=== PATIENT | female | born 1970 | race Caucasian/White ===

== ENCOUNTER → 2017-11-28 14:32 | Outpatient (POV) | payer OTHER, MEDICARE, SELFPAY ==
[2017-11-28 14:45] VITALS: BP 133/85; PULSE 91; RESP 20; O2SAT 99
--- NOTE | 2017-11-28 15:39 | HMH.PMCON ---
Assessment and Plan (1) Myofascial pain syndrome Current visit: Yes Status: Chronic Category: Medical Code(s): M79.1 - Myalgia (2) Lumbar back pain Current visit: Yes Status: Chronic Category: Medical Code(s): M54.5 - Low back pain (3) Degenerative joint disease (DJD) of lumbar spine Current visit: Yes Status: Chronic Category: Medical Code(s): M47.816 - Spondylosis without myelopathy or radiculopathy, lumbar region - Assessment and plan all Dx Assessment and Plan for all problems:: I offered the patient injective therapies however at this time she would like to take a more conservative approach. I agree with this. We will do a low dose steroid pack to help with the flare of back pain. We will also do Flexeril 10 mg 1 p.o. 3 times daily. I explained to her that she needs to stop taking her other muscle relaxants at this time. She understands. I also discussed the need for her to do a UDS today. Patient is getting her pain pump filled by home health. Patient's pump is morphine 10 mg/mL concentration with a daily dose of 3. Patient states that her typical pain is well controlled and she usually has no pain at all. He denies any side effects including sleepiness, urinary retention, confusion. Patient's [place] is reviewed [facility] #[id number] is appropriate. Patient has been prescribed a controlled substance after being counseled on the medication, medication safety, and possible side effects. NICKOLAS report has been obtained and reviewed prior to prescription and found to be appropriate. Opioid contract was reviewed and signed by the patient, and that they have agreed to all of the terms set forth by our compliance program. This note was dictated using voice recognition software and may contain omissions or air HPI - Data of Consult Consult date: 11/28/17 Requesting Physician: Sosa Wynn APRN Primary Care Provider: Referral Provider, - Consult Narrative Reason for consult: Pump management, sudden onset in neck and shoulder pain History of present illness: Ms. Marcial is a 47 year old female who has a intrathecal pain pump. Patient had this implanted a little over a year ago. She has recently gone through a time of septicemia. She has now been cleared. Patient also has Crohn's disease and has had most of her bowels were removed she has an ostomy in place. She has also had rectal cancer. She states she is now in remission. Patient has recently had an increase in her back pain along with her cervical pain. Patient rates her pain a 6 out of 10 today[address] Patient drives 2 hours to the office. I discussed the possibility of facet joint injections for her. She has had an MRI at [facility] I do not have these records at this time. I also discussed with her potential trigger point injections however she does not want any injective therapy at this time. CC: Sosa Wynn APRN [facility] History I have reviewed the patient's past medical history: Yes Medical History: Reports:: Arrhythmia, Congestive Heart Failure, Diabetes Mellitus Type 1, Hyperlipidemia, Hypertension Other Medical History: Reports: Fibromyalgia, Sinus Problems Other Surgeries: Yes: Colostomy, - *Social History Educational Level: Completed College Smoking Status: Former smoker Tobacco Type: cigarettes # Packs/Day (cigarettes): 1 #Yrs smoked (if former smoker): 20 Alcohol Intake: never Occupational Status: unemployed Household Members: spouse, family - Psychiatric History Expresses thoughts of harming self/others: None Suicide Plan Description: No Plan *Family Hx:: Heart Attack, Hypertension, Stroke Review of Systems - Review of Systems ROS General: no recent weight change, no fever, no sleep disturbances Respiratory: no cough, no shortness of air, no recurring pulmonary infections Cardiovascular/Peripheral Vascular: No chest pain, No palpitations, no edema, no shortness of breath. Gastrointestinal: O
--- NOTE | 2017-11-28 16:09 | P.CONS_ITS ---
Assessment and Plan (1) Myofascial pain syndrome Current visit: Yes Status: Chronic Category: Medical Code(s): M79.1 - Myalgia (2) Lumbar back pain Current visit: Yes Status: Chronic Category: Medical Code(s): M54.5 - Low back pain (3) Degenerative joint disease (DJD) of lumbar spine Current visit: Yes Status: Chronic Category: Medical Code(s): M47.816 - Spondylosis without myelopathy or radiculopathy, lumbar region - Assessment and plan all Dx Assessment and Plan for all problems:: I offered the patient injective therapies however at this time she would like to take a more conservative approach. I agree with this. We will do a low dose steroid pack to help with the flare of back pain. We will also do Flexeril 10 mg 1 p.o. 3 times daily. I explained to her that she needs to stop taking her other muscle relaxants at this time. She understands. I also discussed the need for her to do a UDS today. Patient is getting her pain pump filled by home health. Patient's pump is morphine 10 mg/mL concentration with a daily dose of 3. Patient states that her typical pain is well controlled and she usually has no pain at all. He denies any side effects including sleepiness , urinary retention, confusion. Patient's [place] is reviewed [facility] #[id number] is appropriate. Patient has been prescribed a controlled substance after being counseled on the medication, medication safety, and possible side effects. N[place]OLAS report has been obtained and reviewed prior to prescription and found to be appropriate. Opioid contract was reviewed and signed by the patient, and that they have agreed to all of the terms set forth by our compliance program. This note was dictated using voice recognition software and may contain omissions or air HPI - Data of Consult Consult date: 11/28/17 Requesting Physician: Sosa Wynn APRN Primary Care Provider: Referral Provider, - Consult Narrative Reason for consult: Pump management, sudden onset in neck and shoulder pain History of present illness: Ms. Marcial is a 47 year old female who has a intrathecal pain pump. Patient had this implanted a little over a year ago. She has recently gone through a time of septicemia. She has now been cleared. Patient also has Crohn's disease and has had most of her bowels were removed she has an ostomy in place. She has also had rectal cancer. She states she is now in remission. Patient has recently had an increase in her back pain along with her cervical pain. Patient rates her pain a 6 out of 10 today. Patient drives 2 hours to the office. I discussed the possibility of facet joint injections for her. She has had an MRI at [facility] I do not have these records at this time. I also discussed with her potential trigger point injections however she does not want any injective therapy at this time. CC: Sosa Wynn APRN [facility] History I have reviewed the patient's past medical history: Yes Medical History: Reports:: Arrhythmia, Congestive Heart Failure, Diabetes Mellitus Type 1, Hyperlipidemia, Hypertension Other Medical History: Reports: Fibromyalgia, Sinus Problems Other Surgeries: Yes: Colostomy, - *Social History Educational Level: Completed College Smoking Status: Former smoker Tobacco Type: cigarettes # Packs/Day (cigarettes): 1 #Yrs smoked (if former smoker): 20 Alcohol Intake: never Occupational Status: unemployed Household Members: spouse, family - Psychiatric History Expresses thoughts of harming self/others: None Suicide Plan Description: No Plan *Family Hx:: Heart Attack, Hyper
[2017-11-28 16:30] LABS: Amphetamine/Metha Screen,Urine Negative ng/mL (<1000); Barbiturates Screen,Urine Negative ng/mL (<200); Benzodiazepines Screen,Urine Negative ng/mL (200); Cannabinoid Screen,Urine Negative ng/mL (<50); Cocaine Screen,Urine Negative ng/g (<300); Methadone Screen,Urine Negative ng/mL (<300); Opiate Screen,Urine Positive ng/mL (<300); Phencyclidine Screen,Urine Negative ng/mL (<25)
--- NOTE | 2017-11-30 09:28 | PC.PHONENOTE ---
Called in Rx for Prednisone 20mg BID x 5 days and Flexeril 10mg TID with no refills to [facility] pharmacy in [place] per provider order
[2017-12-05 15:15] LABS: Codeine Negative (Cutoff=100); Hydrocodone Negative (Cutoff=100); Hydromorphone Negative (Cutoff=100); Morphine Positive (.)
[2017-12-06 06:27] LABS: Opiates Positive (.)
== END ==
PROVIDERS: Visit Provider Clinical Nurse Specialist Family Health
DX: M54.2 Cervicalgia (principal); M54.5 Low back pain
CPT/HCPCS: 80305; 80361; 80365; 99202; G0480

== ENCOUNTER → 2018-05-15 14:48 | Outpatient (POV) | payer MEDICARE, MEDICAID, OTHER, SELFPAY ==
[2018-05-15 15:17] VITALS: BP 129/89; PULSE 96; RESP 18; O2SAT 98; BMI 33.8
--- NOTE | 2018-05-15 15:21 | HMH.PAINSOAP ---
[facility] Pain Management SOAP Note Subjective:: Patient is a pleasant 48-year-old white female who presents today to [facility] care. Patient has been getting intrathecal pain pump refill done at home however she recently lost her insurance and will be receiving her refills here. Patient is being treated for pain with her intrathecal pain pump secondary to history of rectal cancer, Crohn's disease, back pain cervical pain. Patient rates her pain a 3 out of 10 today. Patient is doing quite well. Patient does have [facility] #[id number] reviewed and appropriate. Patient's currently on 3 mg of morphine a day. Patient denies any side effects to the medication. ROS General: no recent weight change, no fever, no sleep disturbances Respiratory: no cough, no shortness of air, no recurring pulmonary infections Cardiovascular/Peripheral Vascular: No chest pain, No palpitations, no edema, no shortness of breath. Gastrointestinal: no incontinence, normal bowel movements reported Genitourinary: no incontinence Musculoskeletal: Back pain Psychiatric: normal mood/ affect Neurological: [denies weakness in extremities], [denies balance issues] Objective:: Physical Exam General: Alert and oriented x3, no acute distress, pleasant and cooperative, [on room air] Lungs: Resps E/U, Symmetrical chest expansion Eyes: PERRL Musculoskeletal: Flexion and extension of lumbar spine somewhat guarded secondary to pain, deep tendon reflexes normal, strength in upper and lower extremities [5/5], slightly antalgic gait noted Neurological: speech clear, home care nurse equal, no gross sensory deficits Assessment:: Degenerative disc disease of lumbar spine with lumbar radiculopathy, myofascial pain syndrome Plan:: We will follow-up with the patient for intrathecal pain pump refill. Patient is doing well at this time. This note was dictated using voice recognition software and may contain errors or omissions
--- NOTE | 2018-05-15 15:24 | P.CONS_ITS ---
[facility] Pain Management SOAP Note Subjective:: Patient is a pleasant 48-year-old white female who presents today to [facility] care. Patient has been getting intrathecal pain pump refill done at home however she recently lost her insurance and will be receiving her refills here. Patient is being treated for pain with her intrathecal pain pump secondary to history of rectal cancer, Crohn's disease, back pain cervical pain. Patient rates her pain a 3 out of 10 today. Patient is doing quite well. Patient does have [facility] #[id number] reviewed and appropriate. Patient's currently on 3 mg of morphine a day. Patient denies any side effects to the medication. ROS General: no recent weight change, no fever, no sleep disturbances Respiratory: no cough, no shortness of air, no recurring pulmonary infections Cardiovascular/Peripheral Vascular: No chest pain, No palpitations, no edema, no shortness of breath. Gastrointestinal: no incontinence, normal bowel movements reported Genitourinary: no incontinence Musculoskeletal: Back pain Psychiatric: normal mood/ affect Neurological: [denies weakness in extremities], [denies balance issues] Objective:: Physical Exam General: Alert and oriented x3, no acute distress, pleasant and cooperative, [ on room air] Lungs: Resps E/U, Symmetrical chest expansion Eyes: PERRL Musculoskeletal: Flexion and extension of lumbar spine somewhat guarded secondary to pain, deep tendon reflexes normal, strength in upper and lower extremities [5/5], slightly antalgic gait noted Neurological: speech clear, cellular phone repairer equal, no gross sensory deficits Assessment:: Degenerative disc disease of lumbar spine with lumbar radiculopathy, myofascial pain syndrome Plan:: We will follow-up with the patient for intrathecal pain pump refill. Patient is doing well at this time. This note was dictated using voice recognition software and may contain errors or omissions
== END ==
PROVIDERS: Visit Provider Clinical Nurse Specialist Family Health
DX: M54.16 Radiculopathy, lumbar region (principal)
CPT/HCPCS: 99212

== ENCOUNTER → 2018-10-24 15:32 | Outpatient (CLI) | payer MEDICARE, MEDICAID, SELFPAY ==
[2018-10-24 16:20] LABS: Amphetamine/Metha Screen,Urine Negative ng/mL (<1000); Barbiturates Screen,Urine Negative ng/mL (<200); Benzodiazepines Screen,Urine Negative ng/mL (<200); Cannabinoid Screen,Urine Negative ng/mL (<50); Cocaine Screen,Urine Negative ng/mL (<300); Methadone Screen,Urine Negative ng/mL (<300); Opiate Screen,Urine Positive ng/mL (<300); Phencyclidine Screen,Urine Negative ng/mL (<25)
[2018-10-30 07:08] LABS: Codeine Negative (Cutoff=100); Hydrocodone Negative (Cutoff=100); Hydromorphone Negative (Cutoff=100); Morphine Positive (.)
[2018-10-30 08:22] LABS: Opiates Positive (.)
== END ==
PROVIDERS: Visit Provider Clinical Nurse Specialist Family Health
DX: Z79.899 Other long term (current) drug therapy (principal)
CPT/HCPCS: 80305; 80361; 80365; G0480

== ENCOUNTER 2019-02-06 13:05 | Day surgery (SDC) | payer MEDICARE, MEDICAID, SELFPAY ==
[2019-02-06 13:15] VITALS: BP 138/82; PULSE 93; RESP 18; O2SAT 98; BMI 34.4
[2019-02-06 13:31] VITALS: BP 134/89; PULSE 97; RESP 18; O2SAT 98
[2019-02-06 13:39] VITALS: BP 135/89; PULSE 94; RESP 18; O2SAT 98
--- NOTE | 2019-02-06 13:46 | HMH.PMPROC ---
- Procedure Date: 02/06/19 Time: 13:46 Anesthesiologist:: Sosa Wynn APRN Complications:: None Pre-procedure Diagnosis:: Degenerative disc disease lumbar spine with lumbar radiculopathy Post-procedure Diagnosis:: Same Indications for Procedure:: Patient is a pleasant 48-year-old white female who presents today for intrathecal pain pump refill and reprogram. She is currently rating her pain a 5 out of 10 she would like a increase she is currently on Infumorph dose of 4.5 mg a day daily with 5 boluses of 0.4 mg equaling 6.5 mg a day Physical Exam General: Alert and oriented x3, no acute distress, pleasant and cooperative, [on room air] Lungs: Resps E/U, Symmetrical chest expansion, Eyes: PERRL Musculoskeletal: Flexion and extension of lumbar spine somewhat guarded secondary to pain, deep tendon reflexes normal, strength in upper and lower extremities [5/5], [abnormal gait noted] Neurological: speech clear, county health officer equal, no gross sensory deficits Procedure Details:: Informed consent was obtained and the risk and benefits of the procedure were explained to the patient. The patient was taken to the procedure room where noninvasive monitoring was placed including noninvasive blood pressure cuff and pulse oximeter. Patient's pump was interrogated. The area over the pump was cleansed with chlorhexidine as a cleansing solution. In sterile fashion the pump was accessed with a 22-gauge needle. Approximately 4 mL's were removed of the pump solution and discarded appropriately. The pump was then refilled with 20 mL's of morphine 30 mg/mL. The needle was withdrawn and a bandage was placed over the puncture site. The infusion rate was reprogrammed to 0.27 mg q. one hour for total daily dose of 6.5 mg. The patient tolerated the procedure well. Plan and Disposition:: Follow-up with the patient to 3 weeks to assess her symptoms at that time if she is doing well we will see her at her next intrathecal pain pump refill and reprogram. Been instructed to call the office if she has any issues prior to her next appointment. Dr. Wright has reviewed this note and agrees with this plan of care. This note was dictated using voice recognition software and may contain errors or omissions
[2019-02-06 14:15] VITALS: BP 107/63; PULSE 90; RESP 18; O2SAT 98
== END 2019-02-06 14:15 | disposition home or self-care (01) ==
LOC: SC.PAINP 13:06
PROVIDERS: Visit Provider Clinical Nurse Specialist Family Health
DX: M51.16 Intervertebral disc disorders with radiculopathy, lumbar region (principal)
CPT/HCPCS: 62370

== ENCOUNTER → 2019-02-27 11:20 | Outpatient (POV) | payer MEDICARE, MEDICAID, SELFPAY ==
[2019-02-27 11:26] VITALS: BP 153/87; PULSE 100; RESP 18; O2SAT 98; BMI 34.0
--- NOTE | 2019-02-27 12:12 | HMH.PMPROC ---
- Procedure Date: 02/27/19 Time: 12:13 Anesthesiologist:: Sosa Wynn APRN Complications:: None Pre-procedure Diagnosis:: Degenerative disc disease lumbar spine with lumbar radiculopathy Post-procedure Diagnosis:: Same Indications for Procedure:: She is a pleasant 48-year-old white female who presents today for intrathecal pain pump reprogram. She is having increased pain rating her pain a 7 out of 10. Patient is on a morphine dose of 6.5 mg a day. Patient denies side effects. Patient's pain was significant on arrival we gave her a 1 mg bolus of morphine her pain is now 2 out of 10. We will reprogram her today. Physical Exam General: Alert and oriented x3, no acute distress, pleasant and cooperative, [on room air] Lungs: Resps E/U, Symmetrical chest expansion, Eyes: PERRL Musculoskeletal: Flexion and extension of lumbar spine somewhat guarded secondary to pain, deep tendon reflexes normal, strength in upper and lower extremities [5/5], [abnormal gait noted] Neurological: speech clear, [place] boatman equal, no gross sensory deficits Procedure Details:: Informed consent was obtained and the risk and benefits of the procedure were explained to the patient. The patient was taken to the procedure room where noninvasive monitoring was placed including noninvasive blood pressure cuff and pulse oximeter. Patient's pump was interrogated and reprogrammed. The infusion rate was increased from 0.27 mg q. one hour to 0.35 mg q. one hour of morphine for total daily dose of 8.5 mg/day. The patient tolerated the procedure well. Plan and Disposition:: We will follow-up with the patient at her next intrathecal pain pump refill and reprogram. She has been instructed to call the office if she has any issues prior to her next appointment. Dr. Wright has reviewed this note and agrees with this plan of care. This note was dictated using voice recognition software and may contain errors or omissions
--- NOTE | 2019-02-27 12:15 | P.PCN_ITS ---
- Procedure Date: 02/27/19 Time: 12:13 Anesthesiologist:: Sosa Wynn APRN Complications:: None Pre-procedure Diagnosis:: Degenerative disc disease lumbar spine with lumbar radiculopathy Post-procedure Diagnosis:: Same Indications for Procedure:: She is a pleasant 48-year-old white female who presents today for intrathecal pain pump reprogram. She is having increased pain rating her pain a 7 out of 10. Patient is on a morphine dose of 6.5 mg a day. Patient denies side effects. Patient's pain was significant on arrival we gave her a 1 mg bolus of morphine her pain is now 2 out of 10. We will reprogram her today. Physical Exam General: Alert and oriented x3, no acute distress, pleasant and cooperative, [on room air] Lungs: Resps E/U, Symmetrical chest expansion, Eyes: PERRL Musculoskeletal: Flexion and extension of lumbar spine somewhat guarded secondary to pain, deep tendon reflexes normal, strength in upper and lower extremities [5/5], [abnormal gait noted] Neurological: speech clear, merchandising consultant equal, no gross sensory deficits Procedure Details:: Informed consent was obtained and the risk and benefits of the procedure were explained to the patient. The patient was taken to the procedure room where noninvasive monitoring was placed including noninvasive blood pressure cuff and pulse oximeter. Patient's pump was interrogated and reprogrammed. The infusion rate was increased from 0.27 mg q. one hour to 0.35 mg q. one hour of morphine for total daily dose of 8.5 mg/day. The patient tolerated the procedure well. Plan and Disposition:: We will follow-up with the patient at her next intrathecal pain pump refill and reprogram. She has been instructed to call the office if she has any issues p rior to her next appointment. Dr. Wright has reviewed this note and agrees with this plan of care. This note was dictated using voice recognition software and may contain errors or omissions
--- NOTE | 2019-10-15 12:49 | PC.NURSE ---
PT CALLED TO NOTIFY OFFICE SHE HAD SURGERY LAST WEEK AND WAS PLACED ON OXYCODONE 5MG BY HER SURGEON.
== END ==
PROVIDERS: Visit Provider Clinical Nurse Specialist Family Health
DX: M51.16 Intervertebral disc disorders with radiculopathy, lumbar region (principal)
CPT/HCPCS: 62368; 99212

== ENCOUNTER → 2020-03-06 11:01 | Outpatient (POV) | payer MEDICARE, MEDICAID, SELFPAY ==
--- NOTE | 2020-03-06 13:05 | HMH.PAINSOAP ---
[facility] Pain Management SOAP Note Subjective:: Patient is a pleasant 49-year-old white female who is following up via telehealth medicine today. This encounter was performed as telemedicine. The visit was performed via a secure to a video and audio to minimize risk and transmission of COVID19. Patient understands limitations of telemedicine visits which include inability to check reflexes, possibly missing subtle findings on the physical exam. Alternative options were presented to the patient and the patient did elect to proceed with the visit. The patient and I specifically discussed risk factors for COVID19. These risks include, but are not limited to age greater than 60, heart or lung disease, diabetes, immunosuppression, and travel. We also discussed NSAIDs may worsen COVID19 infection or symptoms. Patient should not use NSAIDs to treat COVID19 signs or symptoms. Patient was also informed that any type of corticosteroid of any form (oral or injection) will decrease the patient's immune system response and may increase the likelihood of COVID19 infection and symptoms. Patient is following up today via telehealth medicine for her 6-month visit. She does have intrathecal pain pump that is treating degenerative disc disease of lumbar spine with lumbar radiculopathy symptoms. Patient says she is doing well overall with her intrathecal therapy. She is currently on morphine intrathecal therapy. She denies any side effects to the medication. Patient says that she is having some wrist, knee, and ankle pain. She says this is chronic in nature. She has tried Voltaren gel with no relief. She is requesting other topical remedies to help with her pain. Overall, the patient says she is doing well with her low back pain, however. Review of Systems General: No recent weight changes, no fever, no sleep disturbances Respiratory: No cough, no shortness of air, no recurring pulmonary infections Cardiovascular/peripheral vascular: No chest pain, no palpitations, no edema, no shortness of breath Gastrointestinal: No new onset incontinence, normal bowel movements reported Genitourinary: No new onset incontinence Musculoskeletal: Intermittent low back pain, bilateral wrist pain, bilateral ankle pain, bilateral knee pain Psychiatric: Normal mood/affect Neurological: [Denies weakness in extremities], [denies balance issues] Objective:: Constitutional: Healthy appearing, well-developed, alert and oriented, no acute distress noted Psychiatric: Judgment and insight intact. Mood normal, affect appropriate Head: Normocephalic, atraumatic, extraocular movement intact Respiratory: Nonlabored, non-dyspneic Cardiovascular: No cyanosis, no clubbing, no edema observed Skin: Head and neck, no lesions or rashes noted. Bilateral upper extremities no lesions or rashes noted Gait: Able to walk without assist of heel and toe walk Neurological: Sensation grossly intact per patient C3-T1 Musculoskeletal: Full range of motion, positive straight leg raise Assessment:: Degenerative disc disease lumbar spine with lumbar radiculopathy symptoms Plan:: Overall the patient is doing well with her intrathecal therapy. We will order the patient compounding cream for her pain in her wrists, ankles, and knees bilaterally. She has tried Voltaren gel with no relief. We will plan to see the patient back in the clinic in 6 months. She has been instructed to contact clinic if she has any concerns before next appointment. Dr. Wright has reviewed this note and agrees with this plan of care. This note was dictated using voice recognition software and make contain errors or omissions. [facility] History I have reviewed the patient's past medical history: Yes Medical History: Reports:: Arrhythmia, Cancer (recto), Congestive Heart Failure, Diabetes Mellitus Type 2, Hyperlipidemia, Hypertension, MRSA Denies:: Diabetes Mellitus Type 1, Seizures *Have you ever received a pneumoni
== END ==
PROVIDERS: Visit Provider Clinical Nurse Specialist Family Health
DX: M51.16 Intervertebral disc disorders with radiculopathy, lumbar region (principal)
CPT/HCPCS: 99212

== ENCOUNTER 2020-09-01 13:19 | Day surgery (SDC) | payer MEDICARE, MEDICAID, SELFPAY ==
[2020-09-01 13:46] VITALS: BP 120/78; PULSE 78; RESP 18; TEMP 36.6; O2SAT 98; BMI 36.0
[2020-09-01 13:52] VITALS: BP 117/77; PULSE 85; RESP 18; O2SAT 98
--- NOTE | 2020-09-01 13:52 | P.PCN_ITS ---
- Procedure Date: 09/01/20 Time: 13:52 Anesthesiologist:: Sosa Wynn APRN Complications:: None Pre-procedure Diagnosis:: Degenerative disc disease lumbar spine lumbar radiculopathy Post-procedure Diagnosis:: Same Indications for Procedure:: Patient is a pleasant 50-year-old white female presents today for intrathecal pain pump refill and reprogram. Patient has finished her chemotherapy and is now on Stelara. She is having quite a bit of joint pain worsening after she started the Stelara. We discussed potentially doing some anti-inflammatory medications. She is currently on intrathecal morphine. We will increase her today. She denies side effects to this. [facility] #[id number] reviewed and appropriate. She is on compounding cream. Physical Exam General: Alert and oriented x3, no acute distress, pleasant and cooperative, [on room air] Lungs: Resps E/U, Symmetrical chest expansion, Eyes: PERRL Musculoskeletal: Flexion and extension of lumbar spine somewhat guarded secondary to pain, deep tendon reflexes normal, strength in upper and lower extremities [5/5], [abnormal gait noted] Neurological: speech clear, chief counsel equal, no gross sensory deficits Procedure Details:: Informed consent was obtained and the risk and benefits of the procedure were explained to the patient. The patient was taken to the procedure room where noninvasive monitoring was placed including noninvasive blood pressure cuff and pulse oximeter. Patient's pump was interrogated. The area over the pump was cleansed with chlorhexidine as a cleansing solution. In sterile fashion the pump was accessed with a 22-gauge needle. [id number]'s were removed of the pump solution and discarded appropriately. The pump was then refilled with 20 mL's of 30mg/mL. The needle was withdrawn and a bandage was placed over the puncture site. The infusion rate was reprogrammed to increase to 9 mg/day. The patient tolerated the procedure well. Plan and Disposition:: We will: Call in Celebrex 200 mg 1 p.o. daily for the patient. We will see if this is beneficial for her joint pain. We will see her back at her next intrathecal pain pump refill and reprogram. She has been instructed to call the office if she has any issues prior to her next appointment. Dr. Wright has reviewed this note and agrees with this plan of care. This note was dictated using voice recognition software and may contain errors or omissions
[2020-09-01 13:55] VITALS: BP 118/79; PULSE 80; PULSE 82; RESP 18; O2SAT 98
[2020-09-01 14:20] VITALS: BP 117/76; PULSE 78; RESP 18; O2SAT 98
== END 2020-09-01 14:20 | disposition home or self-care (01) ==
LOC: SC.PAINP 13:22
PROVIDERS: Visit Provider Clinical Nurse Specialist Family Health
DX: M51.16 Intervertebral disc disorders with radiculopathy, lumbar region (principal); Z72.0 Tobacco use; K21.9 Gastro-esophageal reflux disease without esophagitis; F41.9 Anxiety disorder, unspecified; F32.9 Major depressive disorder, single episode, unspecified; Z86.19 Personal history of other infectious and parasitic diseases
CPT/HCPCS: 62370

== ENCOUNTER → 2021-09-10 09:20 | Outpatient (POV) | payer MEDICARE, MEDICAID, SELFPAY ==
--- NOTE | 2021-09-10 09:24 | P.CONS_ITS ---
[facility] PM Virtual Visit SOAP Consent for virtual visit:: With the recent concerns about the COVID-19, we are trying to minimize exposure to you by shifting to telehealth appointments whenever possible. It restricts me from seeing you in person, but the trade off is protecting you during this pandemic. Can you see and hear me okay, and do you consent to this option? If not, I would be happy to see if we can reschedule your appointment in the future, when feasible. Has patient consented to this virtual visit?: Yes Subjective:: Patient is a 51-year-old white female who is following up via telehealth today with phone call. She is currently diagnosed with Covid 1 day before . She is having difficulty talking and breathing during the conversation on the phone. She is doing a 6-month follow-up and is at home refill patient. Patient sounds very ill and having difficulty with conversation today. She does says she is doing well with her intrathecal pump. Patient has been advised we will not speak long via telephone due to difficulty speaking. She does rate her pain a 2 out of 10 to her low back area. She is not having any side effects to the medication. She is currently quarantining. Review of Systems General: No recent weight changes, Respiratory: Shortness of breath, coughing, difficulty speaking Cardiovascular/peripheral vascular: No chest pain, no palpitations, Gastrointestinal: No new onset incontinence, normal bowel movements reported Genitourinary: No new onset incontinence Musculoskeletal: Minimal back pain Psychiatric: [Normal mood/affect] Neurological: Reports weakness Objective:: Physical exam General: Alert and oriented x3, shortness of breath during conversation Assessment:: Degenerative disc disease lumbar spine with lumbar radiculopathy symptoms, Covid diagnosis current Plan:: We will plan to follow-up with patient in 6 months. She does undergo routine drug screens through [employer] home refill. She has been advised she can contact the clinic if she has any concerns for next appointment. Patient has been instructed to contact the clinic with any concerns before the next appointment. Dr. Wright has reviewed this note and agrees with this plan of care. This note was dictated using voice recognition software and make contain errors or omissions. Time In:: 09:15 Time Out:: 09:20 [facility] History I have reviewed the patient's past medical history: Yes Medical History: Reports:: Arrhythmia, Congestive Heart Failure, Diabetes Mellitus Type 2, Hyperlipidemia, Hypertension Denies:: Cancer, Diabetes Mellitus Type 1, MRSA, Seizures *Have you ever received a pneumonia vaccine?: No *Have you received a flu vaccine this season?: No Other Medical History: Reports: Fibromyalgia, Sinus Problems Other Surgeries: Yes: Cholecystectomy, Colostomy (ostomy x4), , Other Amputation: No Fractures: No - *Social History Smoking Status: Current every day smoker Tobacco Type: cigarettes # Packs/Day (cigarettes): 1 #Yrs smoked (if former smoker): 20 Alcohol Intake: never *Occupational Status:: retired Housing: house Household Members: other *Travel in the last 8 weeks: None Family Hx:: Heart Attack, Hypertension, Stroke
== END ==
PROVIDERS: Visit Provider Clinical Nurse Specialist Family Health
DX: M51.16 Intervertebral disc disorders with radiculopathy, lumbar region (principal); U07.1 COVID-19
CPT/HCPCS: 99212; G0463

== ENCOUNTER → 2023-01-05 14:47 | Outpatient (POV) | payer MEDICARE, SELFPAY ==
--- NOTE | 2023-01-05 15:04 | A.OFFVIS_ITS ---
[facility] Pain Management SOAP Note Subjective:: Patient is a pleasant 52-year-old female who presents today for 6-month medication refill and follow-up. We are currently treating the patient for degenerative disc disease of lumbar spine with lumbar radiculopathy symptoms. Today she rates her pain an 8 out of 10. Patient states that she is experiencing back pain that is more prominent on the right side that goes down to her knee as well as right finger numbness that goes up her forearm. Patient states this is only been going on for approximately 1 week and does feel like it is related to being out of her Lyrica medication. Patient is currently managed with pregabalin 150 mg 3 times a day. Patient denies any side effects from this medication. Patient is an at home [facility] client patient. She is currently managed with intrathecal morphine 30 mg/mL with 9.9 mg/day. Patient denies any side effects from this medication. She states this medication does help. She is also prescribed compounding cream for additional relief. Her Nickolas is [phone]. Its been reviewed and appropriate. Review of Systems: General: No recent weight changes, no fever, no sleep disturbances Respiratory: No cough, no shortness of air, no recurring pulmonary infections Cardiovascular/peripheral vascular: No chest pain, no palpitations, no edema, no shortness of breath Gastrointestinal: No new onset incontinence, normal bowel movements reported Genitourinary: No new onset incontinence Musculoskeletal: Low back pain Psychiatric: [Normal mood/affect] Neurological: [Denies weakness in extremities], [denies balance issues] Objective:: Physical Exam: General: Alert and oriented x3, no acute distress, pleasant and cooperative Lungs: Respirations even and unlabored, symmetrical chest expansion Eyes: PERRL Musculoskeletal: Flexion and extension of lumbar [spine] somewhat guarded secondary to pain, [antalgic gait noted] Neurological: Speech clear, no gross sensory deficit Assessment:: Degenerative disc disease of lumbar spine with lumbar radiculopathy symptoms Plan:: Patient is currently experiencing worsening pain in her low back with radiating symptoms into her right leg however she does believe this is related to being out of her Lyrica for the last week. Patient did have limited range of motion of her lumbar spine during today's visit. I will refill the patient's pregabalin 150 mg 3 times a day and provide a 6-month supply of this medication. I have discussed with the patient that she may benefit from injections for her worsening pain however at this time she would like to wait and see if the symptoms resolved after having her medication. Patient will return to clinic in 6 months for reevaluation of symptoms, medication refill and follow-up. Patient has been instructed to contact the clinic with any concerns before the next appointment. Dr. Wright has reviewed this note and agrees with this plan of care. This note was dictated using voice recognition software and make contain errors or omissions. [facility] Disclaimer: The information contained in this section may have been updated after the patient was seen, as this information can be updated by other users. Social History Smoking Status: Current every day smoker tobacco type: cigarettes packs per day: 1 second hand exposure: No alcohol intake: never current occupational status: retired Travel in the last 8 weeks: None household members: other housing: house current occupational exposures/hazards: No caffeine: Yes
[2023-01-05 15:23] VITALS: BP 113/86; PULSE 106; RESP 18; O2SAT 97; BMI 31.0
== END | disposition home or self-care (01) ==
PROVIDERS: Visit Provider Nurse Practitioner Family
DX: M51.16 Intervertebral disc disorders with radiculopathy, lumbar region (principal)
CPT/HCPCS: 99212; G0463

== ENCOUNTER → 2023-07-27 13:44 | Outpatient (POV) | payer MEDICARE, SELFPAY ==
--- NOTE | 2023-07-27 14:46 | EXP.PAIN.SOA ---
[facility] Pain Management SOAP Note Subjective:: Patient is a pleasant 53-year-old female who presents today for follow-up. We are currently treating the patient for degenerative disc disease of lumbar spine with lumbar radiculopathy symptoms. Today she rates her pain an 8 out of 10. Patient denies any new trauma or injury. She does state that today seems like a particularly bad day. Patient is currently managed with morphine 30 mg/mL with a daily dose of 9.9 mg/day. Patient denies any side effects from this medication. Patient is also managed with Lyrica 150 mg 3 times a day and compounded cream. Patient does state that she needs refills on all of this including the cream. Patient does state that she has also bad arthritis and that she does typically take the Tylenol arthritis however has only had minimal improvement. Patient denies any heart or kidney issues. Her Nickolas is [phone]. Its been reviewed and appropriate. Review of Systems: General: No recent weight changes, no fever, no sleep disturbances Respiratory: No cough, no shortness of air, no recurring pulmonary infections Cardiovascular/peripheral vascular: No chest pain, no palpitations, no edema, no shortness of breath Gastrointestinal: No new onset incontinence, normal bowel movements reported Genitourinary: No new onset incontinence Musculoskeletal: Low back pain Psychiatric: [Normal mood/affect] Neurological: [Denies weakness in extremities], [denies balance issues] Objective:: Physical Exam: General: Alert and oriented x3, no acute distress, pleasant and cooperative Lungs: Respirations even and unlabored, symmetrical chest expansion Eyes: PERRL Musculoskeletal: Flexion and extension of lumbar [spine] somewhat guarded secondary to pain, [antalgic gait noted] Neurological: Speech clear, no gross sensory deficit Assessment:: Degenerative disc disease of lumbar spine with lumbar radiculopathy symptoms Plan:: I will send in refills of the patient's Lyrica 150 mg 3 times a day, compounded cream and also send in a new prescription of meloxicam 7.5 mg with a 14-day supply of this medication. Patient does have a history of GI issues including Crohn's. I have discussed with the patient to discontinue all other NSAIDs while taking this medication and to take it with food to minimize GI upset. I have discussed with her to contact our office if this does provide improvement and she would like additional refills. Patient will return to clinic in 6 months for reevaluation of symptoms and plan of care. We will see the patient back in the clinic at the next intrathecal refill. Patient has been instructed to contact the clinic with any concerns before the next appointment. Dr. Wright has reviewed this note and agrees with this plan of care. This note was dictated using voice recognition software and make contain errors or omissions. -- It Is medically necessary for this patient to continue to have their intrathecal pump refilled at regular intervals. This patient had an intrathecal pain pump implanted after meeting criteria of chronic intractable pain for greater than 3 months and failing conservative treatments. Patient has committed and been compliant to the treatment plan and all planned follow up care. Since implantation of the intrathecal pain pump, the patient has had decreased pain and been more functional. Oral medications have been reduced including intake of oral opioids. Patient continues to do well with intrathecal therapy with decrease in pain symptoms and increase in functional status. Stopping intrathecal medications can lead to life threatening withdrawal, seizures, cardiac arrest, severe pain, and possible . Pumps that are not refilled at regular intervals can be damages and cause and need for replacement. We continually titrate dose and concentration to optimize pain relief and function. We are limited in concentration for certain drugs to safely deliver medications through the pump and st
[2023-07-27 15:36] VITALS: BP 117/79; PULSE 99; RESP 18; O2SAT 95; BMI 35.0
== END | disposition home or self-care (01) ==
PROVIDERS: Visit Provider Nurse Practitioner Family
DX: M51.16 Intervertebral disc disorders with radiculopathy, lumbar region (principal); Z97.8 Presence of other specified devices
CPT/HCPCS: 99212; G0463

== ENCOUNTER 2024-02-16 13:17 | Outpatient (POV) | payer MEDICARE, SELFPAY ==
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
[2024-02-16 13:35] VITALS: BP 141/90; PULSE 78; RESP 18; O2SAT 95; BMI 28.1
--- NOTE | 2024-02-16 13:47 | A.OFFVIS_ITS ---
[facility] Pain Management SOAP Note Subjective:: Patient is a pleasant 53-year-old female who presents today for medication refill and follow-up. Today she rates her pain a 4 out of 10. Patient denies any new trauma or injury. At our last visit we did trial her on meloxicam 7.5 mg with a 2-week supply however she states that it ended up causing some GI issues and she did not have improvement worthwhile to get refills. Patient is currently managed with Lyrica 150 mg 3 times a day and compounded cream. She denies any side effects from these medications. She does state that her primary care did put her back on Flexeril and that is helping. Patient does also have a intrathecal pain pump with morphine 30 mg/mL and a daily dose of 9.9 mg/day. She denies any side effects from this medication. Her Nickolas has been reviewed and is appropriate. Review of Systems: General: No recent weight changes, no fever, no sleep disturbances Respiratory: No cough, no shortness of air, no recurring pulmonary infections Cardiovascular/peripheral vascular: No chest pain, no palpitations, no edema, no shortness of breath Gastrointestinal: No new onset incontinence, normal bowel movements reported Genitourinary: No new onset incontinence Musculoskeletal: Abdominal pain low back pain, bilateral shoulder pain Psychiatric: [Normal mood/affect] Neurological: [Denies weakness in extremities], [denies balance issues] Objective:: Physical Exam: General: Alert and oriented x3, no acute distress, pleasant and cooperative Lungs: Respirations even and unlabored, symmetrical chest expansion Eyes: PERRL Musculoskeletal: Flexion and extension of lumbar [spine] somewhat guarded secondary to pain, [antalgic gait noted] Neurological: Speech clear, no gross sensory deficit Assessment:: Degenerative disc disease of lumbar spine with lumbar radiculopathy symptoms, abdominal pain, bilateral shoulder pain Plan:: I will refill the patient's pregabalin and provide a 6-month supply of this medication. Patient does state that her last prescription supposedly with still 2 refills on hand. I have counseled patient if this happens again she can just follow-up test and let us know and we will send in additional refills. Patient was counseled that if her shoulder pain continues that we can do intra-articular shoulder injections in future. We will follow-up with this at later dates. Patient will return to clinic in 6 months for reevaluation of symptoms and plan of care. Patient has been instructed to contact the clinic with any concerns before the next appointment. Dr. Wright has reviewed this note and agrees with this plan of care. This note was dictated using voice recognition software and make contain errors or omissions. -- It Is medically necessary for this patient to continue to have their intrathecal pump refilled at regular intervals. This patient had an intrathecal pain pump implanted after meeting criteria of chronic intractable pain for greater than 3 months and failing conservative treatments. Patient has committed and been compliant to the treatment plan and all planned follow up care. Since implantation of the intrathecal pain pump, the patient has had decreased pain and been more functional. Oral medications have been reduced including intake of oral opioids. Patient continues to do well with intrathecal therapy with decrease in pain symptoms and increase in functional status. Stopping intrathecal medications can lead to life threatening withdrawal, seizures, cardiac arrest, severe pain, and possible . Pumps that are not refilled at regular intervals can be damages and cause and need for replacement. We continually titrate dose and concentration to optimize pain relief and function. We are limited in concentration for certain drugs to safely deliver medications through the pump and stay within the recommendations from the Polyanalgesic Consensus Committee Guidelines. Depending on dose and concentration these pumps may need to be refilled sooner than 3 months as we titrate. [facility] Disclaimer: The information contained in this section may have been updated after the patient was seen, as this information can be updated by other users. Social History Smoking Status: Current every day smoker tobacco type: cigarettes packs per day: 1 second hand exposure: No alcohol intake: never current occupational status: other Travel in the last 8 weeks: None household members: other housing: house current occupational exposures/hazards: No caffeine: Yes
== END 2024-02-16 23:59 | disposition home or self-care (01) ==
PROVIDERS: Visit Provider Nurse Practitioner Family
DX: M51.16 Intervertebral disc disorders with radiculopathy, lumbar region (principal); R10.9 Unspecified abdominal pain; M25.511 Pain in right shoulder; M25.512 Pain in left shoulder; Z97.8 Presence of other specified devices
CPT/HCPCS: 99212; G0463

== ENCOUNTER 2024-06-01 11:33 | Day surgery (SDC) | payer MEDICARE, SELFPAY ==
[2024-06-01 11:48] VITALS: BMI 34.3
[2024-06-01 11:57] VITALS: BP 141/78; PULSE 93; RESP 18; TEMP 36.6; O2SAT 93
--- NOTE | 2024-06-01 12:02 | EXP.ANES.CKL ---
[facility] Disclaimer: The information contained in this section may have been updated after the patient was seen, as this information can be updated by other users. Medical History CA of rectum Pain of intrathecal infusion pump pocket after insertion Depression Anxiety Malnutrition Hernia Colostomy in place Crohn's disease History of gastroesophageal reflux (GERD) Surgical History Hx of cholecystectomy Social History Smoking Status: Current every day smoker tobacco type: cigarettes packs per day: 1 second hand exposure: No alcohol intake: never substance use type: denies use current occupational status: unemployed Travel in the last 8 weeks: None household members: other housing: house current occupational exposures/hazards: No caffeine: Yes [facility] Anesthesia Checklist Patient Identification Patient Identification: Arm Band and Verbal (Name & ) Structural Data Admitted From: Home Planned Operative Procedure/s: Pain pump replacement Consent for Planned Operative Procedure(s) Verified: Yes Verified Documents: Surgical Consent and History and Physical NPO Status Verified Time NPO: 00:00 Additional verifications Anesthesia Reactions: No Hx Blood Transfusions: Yes Blood Transfusion Reaction: No Airway Assessment Mallampati Score:: Class II C-Spine Mobility Assessed: Yes TMJ Mobility Assessed: Yes Dentition: Good Dentition Neurological Assessment Level of Consciousness: Awake Hx Seizures: No Numbness or tingling in extremities: No Anesthesia Plan Anesthesia Risk discussed: Yes Anesthesia Plan: Verified ASA Class: II Anesthesia Type: MAC
[2024-06-01] MEDS: VANCOMYCIN/WATER FOR INJ (PEG) 1.5 GM/300 ML PIGGYBACK IV (12:07)
[2024-06-01] MEDS: LACTATED RINGERS 1000ML 1,000 ML 25 ML IV (12:08)
[2024-06-01] MEDS: GENTAMICIN 80 MG/2 ML VIAL 160 MG (12:57)
[2024-06-01] MEDS: LIDOCAINE 1% W/EPI 1:100,000 20ML VIAL 40 ML (12:57)
[2024-06-01] MEDS: SODIUM CHLORIDE 0.9% 20ML VIAL 40 ML IV (12:57)
[2024-06-01 13:36] VITALS: BP 111/68; PULSE 87; RESP 16; TEMP 36.3; O2SAT 98
[2024-06-01 13:45] VITALS: BP 116/71; PULSE 90; RESP 16; O2SAT 99
[2024-06-01 13:55] VITALS: BP 118/75; PULSE 84; RESP 16; O2SAT 99
[2024-06-01 14:05] VITALS: BP 107/76; PULSE 86; RESP 16; O2SAT 98
--- NOTE | 2024-06-01 15:55 | P.OP_ITS ---
Date of procedure: 06/01/24 Pre-op Diagnosis:: End-of-life intrathecal pain pump system for degenerative disease of lumbar spine with lumbar radiculopathy symptoms and postlaminectomy syndrome lumbar spine Post-op Diagnosis:: Same Procedure performed:: Replacement pain pump system with new tunneled intrathecal catheter and replacement pain pump generator Surgeon:: Terell Wright MD MICROBIOLOGY SUPERVISOR:: Jonathon Reynolds Anesthesia: MAC Estimated blood loss (mL): 5 Clinical Note:: This patient is a pleasant 54-year-old white female who has a end-of-life Flowonix pain pump system for degenerative disc disease of lumbar spine with lumbar radiculopathy symptoms and postlaminectomy syndrome lumbar spine. She has been doing well with her pain pump system. We will replace her pain pump generator and catheter today. This replacement will be with the Medtronic system. Operative findings:: Implantation of Medtronic SynchroMed 3. Operative note:: Informed consent was obtained risk and benefits of the procedure were explained to the patient. The patient was taken the operating room placed prone on the procedure table. She was prepped and draped in sterile fashion. The skin and subtendinous tissues overlying the pain pump generator were anesthetized using lidocaine. I made incision dissected out the pain pump generator. The catheter did come out when we did take the pain pump generator out. Thus catheter and generator were removed. C arm fluoroscopy was used to view the lumbar spine. The skin subcutaneous tissues adjacent to the L4-5 and L5-S1 interspace were anesthetized using lidocaine. I made incision and dissected down to the lumbar paraspinous fascia. A 17-gauge spinal needle was inserted and advanced very easily into the L4-5 interspace until clear CSF was obtained. After this intrathecal catheter was inserted and advanced very easily to the T8 vertebral body. Catheter was in good position of his midline and posterior. The stylet of the catheter and the needle were withdrawn. The catheter secured to the fascia with an anchor device and 2-0 Prolene. I tunneled the catheter from the back to the pump pocket. I filled the pump with 20 mL of intrathecal morphine 15 mg/mL. I attached catheter to the pump. We are able to fully withdraw clear CSF through the sideport. The pump was then placed in the pocket with an antibiotic pouch. Both incisions were then closed with 2-0 Vicryl followed by 4-0 nylon and caroline. The patient was placed in an abdominal binder and taken recovery in stable condition. The patient tolerated the procedure well with no complications. The pump was interrogated and started that 7 mg/day with PTM boluses 0.7 mg up to 4 times a day. Patient was discharged home neurologic intact with good relief of pain symptoms. Plan and disposition: Will follow-up with this patient in 1 week for wound check. Will follow-up in 2 to 3 weeks for suture and staple removal. Patient's refill will need to be on or before 06/28/2024. At her refill concentration may need to be increased to morphine 20 mg/mL. Condition: stable Disposition: PACU Complications:: None
== END 2024-06-01 14:16 | disposition home or self-care (01) ==
PROVIDERS: Visit Provider Anesthesiology
PROC: (CPT 62350; principal; 2024-06-01 13:30)
DX: M51.16 Intervertebral disc disorders with radiculopathy, lumbar region (principal); M96.1 Postlaminectomy syndrome, not elsewhere classified; Z79.899 Other long term (current) drug therapy; F17.210 Nicotine dependence, cigarettes, uncomplicated
CPT/HCPCS: 62350; 62362; 96374; C1755; C1772; J1580; J2250; J2704; J7120

== ENCOUNTER 2024-06-07 10:02 | Outpatient (POV) | payer MEDICARE, SELFPAY ==
--- NOTE | 2024-06-07 10:48 | P.PCN_ITS ---
Procedure Date: 06/07/24 Time: 10:48 Anesthesiologist:: Xochitl Amaya APRN Complications:: None Pre-procedure Diagnosis:: Degenerative disc disease in lumbar spine with lumbar radiculopathy symptoms Post-procedure Diagnosis:: Same Indications for Procedure:: Patient is a pleasant 54-year-old female who presents today for 1 week postop of intrathecal pain pump replacement on 06/01/2024. Today she rates her pain a 9 out of 10. Patient states that she really does not feel that it is more the back pain as it is the incisional pain. Patient denies any problems following the procedure. She does state that she did notice drainage in and around the incision sites. She is currently managed with morphine 15 mg/mL with a daily dose of 7.006 mg/day. She denies any side effects from this medication. Her Nickolas has been reviewed and is appropriate. Physical Exam: General: Alert and oriented x3, no acute distress, pleasant and cooperative Lungs: Respirations even and unlabored, symmetrical chest expansion Eyes: PERRL Musculoskeletal: Flexion and extension of lumbar [spine] somewhat guarded secondary to pain, [antalgic gait noted] Neurological: Speech clear, no gross sensory deficit Procedure Details:: Informed consent was obtained and the risk and benefits of the procedure were explained to the patient. Patient was taken to the procedure room where noninvasive monitoring was placed including noninvasive blood pressure cuff and pulse oximeter. Patient's pump was interrogated and was reprogrammed to morphine 7.707 mg/day. The patient tolerated the procedure well with no complications. Plan and Disposition:: Patient tolerated her intrathecal increase with no complications and was discharged neurologically intact. Patient's incisions are clean, dry, well- approximated with minimal to no erythema noted and sutures and caroline intact. Patient had no drainage during today's visit however she was counseled to let our office know if it does continue to be bothersome. Patient was also counseled to watch for any additional signs of possible infection such as fever or increased redness, swelling, etc. Patient was reviewed to continue her full 6-week postop restrictions of minimal bending, twisting or lifting, no submerging in water until her incisions are fully healed and to continue to use her abdominal binder. Patient acknowledges understanding. Patient will return to clinic in 2 weeks for suture and staple removal. Patient has been instructed to contact the clinic with any concerns before the next appointment. Dr. Wright has reviewed this note and agrees with this plan of care. This note was dictated using voice recognition software and make contain errors or omissions. All injections are used with Lidocaine or Bupivacaine and Depo Medrol.
[2024-06-07 11:47] VITALS: BP 160/94; PULSE 100; RESP 18; O2SAT 93; BMI 31.0
== END 2024-06-07 23:59 | disposition home or self-care (01) ==
PROVIDERS: Visit Provider Nurse Practitioner Family
DX: M51.36 Other intervertebral disc degeneration, lumbar region (principal)
CPT/HCPCS: 62368; 99213; G0463

== ENCOUNTER 2024-06-21 14:37 | Outpatient (POV) | payer MEDICARE, SELFPAY ==
--- NOTE | 2024-06-21 15:24 | A.OFFVIS_ITS ---
[facility] Disclaimer: The information contained in this section may have been updated after the patient was seen, as this information can be updated by other users. Medical History CA of rectum Pain of intrathecal infusion pump pocket after insertion Depression Anxiety Malnutrition Hernia Colostomy in place Crohn's disease History of gastroesophageal reflux (GERD) Surgical History Hx of cholecystectomy Social History (Updated 06/01/24 @ 12:05 by Harris Medellin CRNA) Smoking Status: Current every day smoker tobacco type: cigarettes packs per day: 1 second hand exposure: No alcohol intake: never substance use type: denies use current occupational status: unemployed Travel in the last 8 weeks: None household members: other housing: house current occupational exposures/hazards: No caffeine: Yes PM Subjective & Objective Subjective Subjective:: Patient is a pleasant 54-year-old female who presents today for follow-up. Today she rates her pain a 7 out of 10. Patient denies any new trauma or injury. She states she is still experiencing pain in and around her low back, left hip and right buttocks. Patient does describe this as an aching, throbbing sensation that does interfere with her ability perform activities of daily living such as cooking and cleaning. Patient is status post intrathecal pain pump replacement on 06/01/2024. She is currently managed with morphine 20 mg/mL with a daily dose of 7.632 mg/day. She denies any side effects from this medication. She does state that her home refill nurse and did just increase her yesterday and refill her pump. Patient denies any problems following her surgery. Patient does state that she is scheduled to have surgery on July 27 to have teeth removed due to her chemo. Patient is managed with clonazepam, Flexeril and pregabalin. Her Nickolas has been reviewed and is appropriate. Review of Systems: General: No recent weight changes, no fever, no sleep disturbances Respiratory: No cough, no shortness of air, no recurring pulmonary infections Cardiovascular/peripheral vascular: No chest pain, no palpitations, no edema, no shortness of breath Gastrointestinal: No new onset incontinence, normal bowel movements reported Genitourinary: No new onset incontinence Musculoskeletal: Low back pain, left hip pain, right buttocks pain Psychiatric: [Normal mood/affect] Neurological: [Denies weakness in extremities], [denies balance issues] Pain at rest (0-10 scale): 7 Objective Objective:: Physical Exam: General: Alert and oriented x3, no acute distress, pleasant and cooperative Lungs: Respirations even and unlabored, symmetrical chest expansion Eyes: PERRL Musculoskeletal: Flexion and extension of lumbar [spine] somewhat guarded secondary to pain, [antalgic gait noted] point tenderness along right piriformis muscle and left lumbar paraspinous muscles Neurological: Speech clear, no gross sensory deficit Skin: Incision sites are clean, dry, well-approximated with sutures and caroline in place. Has patient had previous pain injection?: No Conservative treatment options previously tried: Home exercise plan Length of treatment: Longer than 6 weeks Meds Home Medications and Allergies Home Medications ?Medication ?Instructions ?Recorded ?Confirmed ?Type cholecalciferol (vitamin D3) 125 5,000 unit PO DAILY Supplement 11/28/17 06/07/24 History mcg (5,000 unit) capsule ezetimibe 10 mg tablet (Zetia) 10 mg PO DAILY Supplement 11/28/17 06/07/24 History fexofenadine-pseudoephedrine ER 1 ea PO DAILY Allergy symptoms 11/28/17 06/07/24 History 180 mg-240 mg tablet,ext.release 24 hr (Mackenzie-D 24 Hour) montelukast 10 mg tablet 10 mg PO PM Supplement 11/28/17 06/07/24 History omeprazole 40 mg capsule,delayed 40 mg PO BID GERD 11/28/17 06/07/24 History release ondansetron 4 mg disintegrating 8 mg PO TID Nausea & vomiting 11/28/17 06/07/24 History tablet promethazine 25 mg tablet 25 mg PO HS Nausea & vomiting 11/28/17 06/07/24 History cyclobenzaprine 10 mg tablet 10 mg PO BIDP PRN spasms 09/01/20 06/07/24 History clonazepam 1 mg tablet 1 mg PO BID PRN Anxiety 05/31/24 06/07/24 History duloxetine 30 mg capsule,delayed 30 mg PO DAILY 05/31/24 06/07/24 History release (Cymbalta) pregabalin 150 mg capsule (Lyrica) 150 mg PO TID Pain 06/01/24 06/07/24 History sulfamethoxazole 800 1 tab PO BID #14 tabs 06/01/24 06/07/24 Rx mg-trimethoprim 160 mg tablet (Bactrim DS) New Prescriptions to Start Prescriptions: Allergies Allergy/AdvReac Type Severity Reaction Status Date / Time ciprofloxacin [From Cipro] Allergy Verified 06/01/24 11:58 latex Allergy Verified 06/01/24 11:58 levofloxacin [From Levaquin] Allergy Verified 06/01/24 11:58 Assessment and Plan *Assessment and plan (1) Myofascial pain syndrome: Status: Chronic Category: Medical Code(s): M79.1 - Myalgia (2) Lumbar back pain: Status: Chronic Category: Medical Code(s): M54.5 - Low back pain (3) Degenerative joint disease (DJD) of lumbar spine: Status: Chronic Category: Medical Code(s): M47.816 - Spondylosis without myelopathy or radiculopathy, lumbar region (4) Piriformis syndrome of right side: Status: Acute Category: Medical Code(s): G57.01 - Lesion of sciatic nerve, right lower limb Plan Patient is experiencing worsening pain in her low back and left hip as well as her right buttocks. Patient did have limited range of motion of her lumbar spine with point tenderness along her right piriformis muscle as well as left lumbar paraspinous muscles. I did discuss with patient that she may benefit from trigger point injections of both of these areas. Risk and benefits were discussed with the patient and she would like to first try some physical therapy or massage therapy. I did after school counselor the patient that I have no problem ordering this and that she can call and schedule these injections over the phone if the pain does not seem to get better between now and her next visit. We will send the physical therapy/massage therapy order with the patient to treat her low back, hip pain and buttocks pain. Does not have any specific offices that she is aware of in her location. We will see if we can find a physical therapist near her home address. Patient is agreeable to this plan of care. Patient will be given today her next intrathecal refill date as she was now going to be refilled here in clinic. Patient was able to have the rest of her sutures and caroline removed today with glue and Steri-Strips applied. Patient was counseled to continue her postop restrictions the full 6 weeks. Patient will return to clinic for reevaluation of symptoms and plan of care in approximately 4 to 6 weeks. We will see the patient back in the clinic at the next intrathecal refill. Patient has been instructed to contact the clinic with any concerns before the next appointment. Dr. Wright has reviewed this note and agrees with this plan of care. This note was dictated using voice recognition software and make contain errors or omissions. -- It Is medically necessary for this patient to continue to have their intrathecal pump refilled at regular intervals. This patient had an intrathecal pain pump implanted after meeting criteria of chronic intractable pain for greater than 3 months and failing conservative treatments. Patient has committed and been compliant to the treatment plan and all planned follow up care. Since implantation of the intrathecal pain pump, the patient has had decreased pain and been more functional. Oral medications have been reduced including intake of oral opioids. Patient continues to do well with intrathecal therapy with decrease in pain symptoms and increase in functional status. Stopping intrathecal medications can lead to life threatening withdrawal, seizures, cardiac arrest, severe pain, and possible . Pumps that are not refilled at regular intervals can be damages and cause and need for replacement. We continu ally titrate dose and concentration to optimize pain relief and function. We are limited in concentration for certain drugs to safely deliver medications through the pump and stay within the recommendations from the Polyanalgesic Consensus Committee Guidelines. Depending on dose and concentration these pumps may need to be refilled sooner than 3 months as we titrate.
[2024-06-21 15:37] VITALS: BP 118/76; PULSE 96; RESP 18; O2SAT 100; BMI 31.3
== END 2024-06-21 23:59 | disposition home or self-care (01) ==
LOC: SC.PAIN 14:39
PROVIDERS: Visit Provider Nurse Practitioner Family
DX: M47.816 Spondylosis without myelopathy or radiculopathy, lumbar region; G57.01 Lesion of sciatic nerve, right lower limb; Z97.8 Presence of other specified devices; F17.210 Nicotine dependence, cigarettes, uncomplicated; Z73.89 Other problems related to life management difficulty
CPT/HCPCS: 62368; 99213; G0463

== ENCOUNTER 2024-07-12 08:17 | Day surgery (SDC) | payer MEDICARE, SELFPAY ==
[2024-07-12 08:40] VITALS: BP 134/78; PULSE 95; RESP 18; O2SAT 93; BMI 31.3
[2024-07-12 08:57] VITALS: BP 104/69; PULSE 93; RESP 18; O2SAT 94
[2024-07-12 09:05] VITALS: BP 104/69; PULSE 93; RESP 18; O2SAT 94
[2024-07-12 09:08] VITALS: BP 102/71; PULSE 93; RESP 18; O2SAT 96
--- NOTE | 2024-07-12 09:12 | P.PCN_ITS ---
Procedure Date: 07/12/24 Time: 09:12 Anesthesiologist:: Xochitl Amaya APRN Complications:: None Pre-procedure Diagnosis:: Degenerative disc disease of lumbar spine with lumbar radiculopathy symptoms Post-procedure Diagnosis:: Same Indications for Procedure:: Patient is a pleasant 54-year-old female who presents today for intrathecal refill and reprogram. Today she rates her pain a 9 out of 10. She denies any new trauma or injury. Patient does state the last little bit she has been de aling with parotid glands being blocked. Patient states she is now on her second antibiotic and has a lot of pressure and pain related to this. Patient is currently managed with morphine 20 mg/mL with a daily dose of 7.632 mg/day. She denies any side effects from this medication. She is also managed with Flexeril 10 mg twice daily as needed and pregabalin 150 mg 3 times daily from our office. She denies any side effects from these medications. Her Nickolas has been reviewed and is appropriate. Physical Exam: General: Alert and oriented x3, no acute distress, pleasant and cooperative Lungs: Respirations even and unlabored, symmetrical chest expansion Eyes: PERRL Musculoskeletal: Flexion and extension of lumbar [spine] somewhat guarded secondary to pain, [antalgic gait noted] Neurological: Speech clear, no gross sensory deficit Procedure Details:: Informed consent was obtained and the risk and benefits of the procedure were explained to the patient. The patient was taken to the procedure room where noninvasive monitoring was placed including noninvasive blood pressure cuff and pulse oximeter. Patient's pump was interrogated. The area over the pump was cleansed with chlorhexidine as a cleansing solution. In sterile fashion the pump was accessed with a 22-gauge needle. Approximately 10.8 mls of the pump solution was removed and discarded appropriately. The pump was then refilled with 20 mL's of morphine 20 mg/mL. The needle was withdrawn and a bandage was placed over the puncture site. The infusion rate was reprogrammed and continued at morphine 7.632 mg/day. The patient tolerated well with no complication. Plan and Disposition:: Patient tolerated intrathecal refill and reprogram with no complications and was discharged neurologically intact. I will refill the patient's pregabalin, Flexeril and put refills on her compounded cream. Patient will return to clinic on or before her next pump refill date. We will see the patient back in the clinic at the next intrathecal refill. Patient has been instructed to contact the clinic with any concerns before the next appointment. Dr. Wright has reviewed this note and agrees with this plan of care. This note was dictated using voice recognition software and make contain errors or omissions. -- It Is medically necessary for this patient to continue to have their intrathecal pump refilled at regular intervals. This patient had an intrathecal pain pump implanted after meeting criteria of chronic intractable pain for greater than 3 months and failing conservative treatments. Patient has committed and been compliant to the treatment plan and all planned follow up care. Since implantation of the intrathecal pain pump, the patient has had decreased pain and been more functional. Oral medications have been reduced including intake of oral opioids. Patient continues to do well with intrathecal therapy with decrease in pain symptoms and increase in functional status. Stopping intrathecal medications can lead to life threatening withdrawal, seizures, cardiac arrest, severe pain, and possible . Pumps that are not refilled at regular intervals can be damages and cause and need for replacement. We continually titrate dose and concentration to optimize pain relief and function. We are limited in concentration for certain drugs to safely deliver medications through the pump and stay within the recommendations from the Polyanalgesic Consensus Committee Guidelines. Depending on dose and concentration these pumps may need to be refilled sooner than 3 months as we titrate.
== END 2024-07-12 09:10 | disposition home or self-care (01) ==
PROVIDERS: Visit Provider Nurse Practitioner Family
DX: M51.16 Intervertebral disc disorders with radiculopathy, lumbar region (principal)
CPT/HCPCS: 62370

== ENCOUNTER 2024-08-15 13:17 | Day surgery (SDC) | payer MEDICARE, SELFPAY ==
[2024-08-15 13:45] VITALS: BP 114/77; PULSE 91; RESP 18; O2SAT 96; BMI 31.0
[2024-08-15 14:22] VITALS: BP 128/78; PULSE 84; RESP 18; O2SAT 96
--- NOTE | 2024-08-15 14:32 | P.PCN_ITS ---
Procedure Date: 08/15/24 Time: 14:32 Anesthesiologist:: Xochitl Amaya APRN Complications:: None Pre-procedure Diagnosis:: Degenerative disc disease of lumbar spine with lumbar radiculopathy symptoms, left shoulder pain Post-procedure Diagnosis:: Same Indications for Procedure:: Patient is a pleasant 54-year-old female who presents today for intrathecal refill and reprogram. Today she rates her pain a 9 out of 10. Patient states that she was helping her aunt move and was carrying a lot of her baggage to the airport and was experiencing severe pain in her left shoulder. Patient states this is continued since and she has very limited range of motion due to this. Patient is unsure if she is done anything significant. Patient does have her intrathecal pain pump in place with morphine 20 mg/mL. She denies any side effects from this medication and denies any need for any additional adjustment to the dosage. She is currently managed at 7.632 mg/day. Patient is also prescribed Flexeril 10 mg twice a day and pregabalin 150 mg 3 times a day from our office. She denies any side effects from this medication. Her Nickolas has been reviewed and is appropriate. Physical Exam: General: Alert and oriented x3, no acute distress, pleasant and cooperative Lungs: Respirations even and unlabored, symmetrical chest expansion Eyes: PERRL Musculoskeletal: Flexion and extension of left shoulder somewhat guarded secondary to pain, [antalgic gait noted] Neurological: Speech clear, no gross sensory deficit Procedure Details:: Informed consent was obtained and the risk and benefits of the procedure were explained to the patient. The patient was taken to the procedure room where noninvasive monitoring was placed including noninvasive blood pressure cuff and pulse oximeter. Patient's pump was interrogated. The area over the pump was cleansed with chlorhexidine as a cleansing solution. In sterile fashion the pump was accessed with a 22-gauge needle. Approximately 6.4 mls of the pump solution was removed and discarded appropriately. The pump was then refilled with 20 mL's of morphine 20 mg/mL. The needle was withdrawn and a bandage was placed over the puncture site. The infusion rate was reprogrammed and continued at mor phine 7.632 mg/day. The patient tolerated well with no complication. Plan and Disposition:: Patient tolerated her intrathecal refill and reprogram with no complications and was discharged neurologically intact. I did discuss with the patient that I will send in a 5-day dose of prednisone 20 mg twice daily to help with her overall shoulder pain. Patient was counseled if this does not improve that we may need to order additional imaging to confirm that she has not had a tear or done something more significant. Patient acknowledges understanding. Patient will return to clinic on or before September 17 for her next intrathecal refill and reprogram. We will see the patient back in the clinic at the next intrathecal refill. Patient has been instructed to contact the clinic with any concerns before the next appointment. Dr. Wright has reviewed this note and agrees with this plan of care. This note was dictated using voice recognition software and make contain errors or omissions. -- It Is medically necessary for this patient to continue to have their intrathecal pump refilled at regular intervals. This patient had an intrathecal pain pump implanted after meeting criteria of chronic intractable pain for greater than 3 months and failing conservative treatments. Patient has committed and been compliant to the treatment plan and all planned follow up care. Since implantation of the intrathecal pain pump, the patient has had decreased pain and been more functional. Oral medications have been reduced including intake of oral opioids. Patient continues to do well with intrathecal therapy with decrease in pain symptoms and increase in functional status. Stopping intrathecal medications can lead to life threatening withdrawal, seizures, cardiac arrest, severe pain, and possible . Pumps that are not refilled at regular intervals can be damages and cause and need for replacement. We continually titrate dose and concentration to optimize pain relief and function. We are limited in concentration for certain drugs to safely deliver medications through the pump and stay within the recommendations from the Polyanalgesic Con sensus Committee Guidelines. Depending on dose and concentration these pumps may need to be refilled sooner than 3 months as we titrate.
[2024-08-15 14:37] VITALS: BP 133/93; PULSE 82; RESP 16; O2SAT 94
== END 2024-08-15 14:37 | disposition home or self-care (01) ==
PROVIDERS: Visit Provider Nurse Practitioner Family
DX: M51.16 Intervertebral disc disorders with radiculopathy, lumbar region (principal); M25.512 Pain in left shoulder
CPT/HCPCS: 62370

== ENCOUNTER 2024-09-14 10:01 | Day surgery (SDC) | payer MEDICARE, SELFPAY ==
[2024-09-14 10:30] VITALS: BP 107/57; PULSE 91; RESP 16; TEMP 36.8; O2SAT 96; BMI 31.3
--- NOTE | 2024-09-14 10:39 | P.PCN_ITS ---
Procedure Date: 09/14/24 Time: 11:10 Anesthesiologist:: Xochitl Amaya APRN Complications:: None Pre-procedure Diagnosis:: Degenerative disc disease of lumbar spine with lumbar radiculopathy symptoms, myofascial pain, piriformis syndrome Post-procedure Diagnosis:: Same Indications for Procedure:: Patient is a pleasant 54-year-old female who presents today for intrathecal refill and reprogram. Today she rates her pain a 6 out of 10. Patient denies any new trauma or injury. She does however states that she has still been having the left shoulder and mid back pain. She states that it was bad enough a couple weeks ago she did go to the ER where she could not lay on her side. Patient states they did do some labs and imaging with no acute findings. She does state today that does seem a little bit better however she still has a lot of pain in this area. Patient is currently managed with morphine 20 mg/mL with a daily dose of 7.632 mg/day. She denies any side effects from this medication. She is requesting if we can go up on the dosage. She is also managed with Flexeril 10 mg twice a day from our office and pregabalin 150 mg 3 times a day from our office. She did get a 6-month supply of these medications recently and does not need refills at this time. Her Nickolas has been reviewed and is appropriate. Physical Exam: General: Alert and oriented x3, no acute distress, pleasant and cooperative Lungs: Respirations even and unlabored, symmetrical chest expansion Eyes: PERRL Musculoskeletal: Flexion and extension of lumbar [spine] somewhat guarded secondary to pain, [antalgic gait noted] extreme point tenderness along the left trapezius and left rhomboid muscles Neurological: Speech clear, no gross sensory deficit Procedure Details:: Informed consent was obtained and the risk and benefits of the procedure were e xplained to the patient. The patient had noninvasive monitoring placed including noninvasive blood pressure cuff and pulse oximeter. Patient's pump was interrogated. The area over the pump was cleansed with chlorhexidine as a cleansing solution. [Fluoroscopy was used to access the pump]. In sterile fashion the pump was accessed with a 22-gauge needle. Approximately8 mls of the pump solution was removed and discarded appropriately. The pump was then refilled with 20 mL's of morphine 20 mg/mL. The needle was withdrawn and a bandage was placed over the puncture site. The infusion rate was reprogrammed and increased to morphine 8.777mg/day. The patient tolerated well with no complication. Plan and Disposition:: Patient tolerated her intrathecal refill and reprogram with no complications and was discharged neurologically intact. Patient did have extreme point tenderness along her left trapezius and left rhomboid muscles during today's visit. I did discuss with the patient that she may benefit from trigger point injections at these muscle groups. Patient has been experiencing this for longer than 3 months and we did even discuss these prior injections at her last appointment. Patient has tried and failed conservative therapy including oral medication, heat and ice, topicals, massage and continued at home stretching exercise for longer than 12 weeks. Patient will be submitted for trigger point injections of her left trapezius and left rhomboid muscles at her next intrathecal refill. Patient will return to clinic on or before her next intrathecal refill date. We will also plan on increasing her intrathecal concentration to morphine 25 mg/mL. We will see the patient back in the clinic at the next intrathecal refill. Patient has been instructed to contact the clinic with any concerns before the next appointment. Dr. Wright has reviewed this note and agrees with this plan of care. This note was dictated using voice recognition software and make contain errors or omissions. -- It Is medically necessary for this patient to continue to have their intrathecal pump refilled at regular intervals. This patient had an intrathecal pain pump implanted after meeting criteria of chronic intractable pain for greater than 3 months and failing conservative treatments. Patient has committed and been compliant to the treatment plan and all planned follow up care. Since implantation of the intrathecal pain pump, the patient has had decreased pain and been more functional. Oral medications have been reduced including intake of oral opioids. Patient continues to do well with intrathecal therapy with decrease in pain symptoms and increase in functional status. Stopping intrathecal medications can lead to life threatening withdrawal, seizures, cardiac arrest, severe pain, and possible . Pumps that are not refilled at regular intervals can be damages and cause and need for replacement. We continually titrate dose and concentration to optimize pain relief and function. We are limited in concentration for certain drugs to safely deliver medications through the pump and stay within the recommendations from the [employer] Guidelines. Depending on dose and concentration these pumps may need to be refilled sooner than 3 months as we titrate.
[2024-09-14 10:58] VITALS: BP 118/85; PULSE 87; RESP 18; O2SAT 91
[2024-09-14 11:06] VITALS: BP 118/85; PULSE 87; RESP 18; O2SAT 91
[2024-09-14 11:15] VITALS: BP 98/73; PULSE 88; RESP 16; O2SAT 95
== END 2024-09-14 11:15 | disposition home or self-care (01) ==
PROVIDERS: PCP Internal Medicine; Visit Provider Nurse Practitioner Family
DX: M51.16 Intervertebral disc disorders with radiculopathy, lumbar region (principal); M79.18 Myalgia, other site; G57.00 Lesion of sciatic nerve, unspecified lower limb
CPT/HCPCS: 62370; 99212; G0463

== ENCOUNTER 2024-10-16 13:11 | Outpatient (POV) | payer MEDICARE, SELFPAY ==
--- NOTE | 2024-10-16 13:17 | EXP.PAIN.PRO ---
Procedure Date: 10/16/24 Time: 13:51 Anesthesiologist:: Xochitl Amaya APRN Complications:: None Pre-procedure Diagnosis:: Degenerative disc disease of lumbar spine with lumbar radiculopathy symptoms, myofascial pain, piriformis syndrome Post-procedure Diagnosis:: Same Indications for Procedure:: Patient is a pleasant 54-year-old female who presents today for intrathecal refill and reprogram. Today she rates her pain a 6 out of 10. She denies any new falls or injuries. She does state that she has been having a little bit more pain in her overall back. Patient is requesting an increase if possible. She is managed with morphine 20 mg/mL with a daily dose of 8.777 mg/day. She denies any side effects from this medication along with her oral medications of Flexeril 10 mg twice a day and pregabalin 150 mg 3 times a day. At one of our last appointments we had discussed about doing trigger point injections however she states that overall her left shoulder has been doing much better and that she has not even had to use her compounded cream like what she has. Her Nickolas has been reviewed and is appropriate. Physical Exam: General: Alert and oriented x3, no acute distress, pleasant and cooperative Lungs: Respirations even and unlabored, symmetrical chest expansion Eyes: PERRL Musculoskeletal: Flexion and extension of lumbar [spine] somewhat guarded secondary to pain, [antalgic gait noted] Neurological: Speech clear, no gross sensory deficit Procedure Details:: Informed consent was obtained and the risk and benefits of the procedure were explained to the patient. The patient had noninvasive monitoring placed including noninvasive blood pressure cuff and pulse oximeter. Patient's pump was interrogated. The area over the pump was cleansed with chlorhexidine as a cleansing solution. In sterile fashion the pump was accessed with a 22-gauge needle. Approximately 5.6 mls of the pump solution was removed and discarded appropriately. The pump was then refilled with 20 mL's of morphine 20 mg/mL. The needle was withdrawn and a bandage was placed over the puncture site. The infusion rate was reprogrammed and morphine 9.219 mg/day. The patient tolerated well with no complication. Plan and Disposition:: Patient tolerated the procedure well with no complications and was discharged neurologically intact. Patient will return to clinic for her next intrathecal refill date. We will see the patient back in the clinic at the next intrathecal refill. Patient has been instructed to contact the clinic with any concerns before the next appointment. Dr. Wright has reviewed this note and agrees with this plan of care. This note was dictated using voice recognition software and make contain errors or omissions. -- It Is medically necessary for this patient to continue to have their intrathecal pump refilled at regular intervals. This patient had an intrathecal pain pump implanted after meeting criteria of chronic intractable pain for greater than 3 months and failing conservative treatments. Patient has committed and been compliant to the treatment plan and all planned follow up care. Since implantation of the intrathecal pain pump, the patient has had decreased pain and been more functional. Oral medications have been reduced including intake of oral opioids. Patient continues to do well with intrathecal therapy with decrease in pain symptoms and increase in functional status. Stopping intrathecal medications can lead to life threatening withdrawal, seizures, cardiac arrest, severe pain, and possible . Pumps that are not refilled at regular intervals can be damages and cause and need for replacement. We continually titrate dose and concentration to optimize pain relief and function. We are limited in concentration for certain drugs to safely deliver medications through the pump and stay within the recommendations from the [employer] Guidelines. Depending on dose and concentration these pumps may need to be refilled sooner than 3 months as we titrate. A UDS is needed to verify patient's compliance with our office pain contract. This is ordered based off specific treatments related to chronic pain with the potential to abuse certain medications. Zzx
[2024-10-16 13:34] VITALS: BP 136/77; PULSE 90; RESP 16; TEMP 36.4; O2SAT 97; BMI 29.5
[2024-10-16 13:44] VITALS: BP 142/92; PULSE 99; RESP 18; O2SAT 93
[2024-10-16 13:49] VITALS: BP 142/92; PULSE 96; RESP 18; O2SAT 93
[2024-10-16 13:56] VITALS: BP 142/92; PULSE 96; RESP 16; O2SAT 97
== END 2024-10-16 13:56 | disposition home or self-care (01) ==
PROVIDERS: Visit Provider Nurse Practitioner Family
DX: M51.16 Intervertebral disc disorders with radiculopathy, lumbar region (principal); M79.18 Myalgia, other site; G57.01 Lesion of sciatic nerve, right lower limb
CPT/HCPCS: 62370